=== PATIENT | female | born 1970 | race African-American/Black ===

== ENCOUNTER 2016-08-13 20:16 | Inpatient (IN) | payer MEDICAID ==
--- NOTE | ~2016-08-13 | DS ---
Unit #: [id number] #: [id number] Patient: ETHEL RUSSELL [id number] [address] [address] [id number] I MR#: [id number] NAME: ETHEL RUSSELL ROOM: 453 Age: 46 Sex: F Admission Date: 08/14/2016 : 1970 Discharge Date: 08/16/2016 Attending Physician: Ruslan Chau M.D. Primary Care Physician: [facility] DISCHARGE SUMMARY REASON FOR ADMISSION Crohn exacerbation. HISTORY OF PRESENT ILLNESS/HOSPITAL COURSE The patient is a very pleasant 46-year-old female with prior history of Crohn disease, was admitted secondary to Crohn exacerbation. Please see H and P for complete details. The patient did undergo a CT abdomen and pelvis in the emergency room which did reveal findings consistent with inflammatory thickening of a 7 cm segment of the terminal ileum extending into the anastomosis that was seen and had been done previously. There was also a central fibroid which was noted within the uterus, coincidental finding. In regard to Crohn exacerbation, she was given appropriate symptom management with Zofran, pain control. Consultation was also placed to Dr. Gonzalez of GI services. The patient was initiated on IV Solu-Medrol. She has shown improvement. She wishes to have regular diet today. We are awaiting her ability to tolerate a regular diet. Her pain has improved to the point where she appears clinically stable for discharge. She will follow up with Dr. Zavala, her normal gin operator at time of discharge as an outpatient. Her hemoglobin on day of admission was noted to be 8.8. She does have a decreased MCV of 63.2. She did receive IV ferrous gluconate while here. Today, hemoglobin currently stands at 7.3. She will be given 2 units of packed red blood cells prior to discharge. She was also encouraged at the time of discharge to follow with her PCP for outpatient evaluation and possible gynecologic evaluation of aforementioned uterine fibroid. FINAL DISCHARGE DIAGNOSES 1. Crohn exacerbation. 2. Anemia, iron deficiency. 3. Probable uterine fibroid. DISCHARGE MEDICATIONS 1. Pepcid 20 mg p.o. b.i.d. Unit #: [id number] #: [id number] Patient: ETHEL RUSSELL 2. Zofran 4 mg p.o. q.6 p.r.n. #30 prescription given. 3. Ferrous gluconate 325 mg one tablet p.o. b.i.d. 4. Prednisone taper per Dr. Gonzalez. Dictated by... Justine Day/julissa TD: 08/18/2016 14:40 JOB #: [id number] DISCHARGE SUMMARY Page 1 of 1 X Ruslan Chau MD X DISCHARGE SUMMARY
--- NOTE | ~2016-08-13 | CT4 ---
[facility] RADIOLOGY TEXT RESULTS PATIENT: ETHEL RUSSELL LOCATION: C4B 453- : [birth year] UNIT #: [id number] AGE: [address]: Ruslan Chau MD SEX: F ORDER DR: [id number] [facility] [address] [facility]. [place], [place] [address] [id number] I MR#: [id number] Acc #: [id number] NAME: ETHEL RUSSELL : 1970 SEX: F STUDY DATE/TIME: 08/13/2016 22:22 UNIT: C4B ROOM: [facility] STUDY DESCRIPTION: CT Abd and Pelv Wo Cont Attending Physician: Ruslan Chau M.D. Ordering Physician: Alicia Alvarado M.D. Primary Care Physician: [facility] MEDICAL IMAGING REPORT This report is preliminary unless electronic signature is present EXAM CT abdomen and pelvis without contrast INDICATIONS Nausea, generalized abdominal pain for the past 3 days. History of Crohn disease. PROCEDURE Unenhanced CT of the abdomen and pelvis COMPARISON None This CT exam was performed with one or more of the following radiation dose reduction techniques: automatic exposure control, adjustment of mA and/or kV according to patient size, and iterative reconstruction. FINDINGS Abdomen without contrast: Included lung bases clear. Liver spleen kidneys adrenal glands, pancreas gallbladder have an unremarkable unenhanced appearance. Mild gastroesophageal reflux. Postsurgical change at the ileocecal junction. There is inflammatory thickening of the terminal ileum, overall length of approximately 7 cm. This extends to the anastomoses. Small bowel loops proximal to this segment are dilated, with air-fluid levels and measure up to 3.4 cm. No evidence for an abscess on this unenhanced study. Pelvis without contrast: Not well seen, the endometrium appears significantly thickened. There is a trace amount of fluid in the pelvis of presumed reactive. No aggressive appearing bone lesions. [facility] RADIOLOGY TEXT RESULTS PATIENT: ETHEL RUSSELL LOCATION: C4B - : 66 UNIT #: [id number] AGE: [address]: Ruslan Chau MD SEX: F ORDER DR: TODD Previous surgery at the ileocecal junction. There is inflammatory thickening of a 7 cm segment of terminal ileum extending to the anastomoses, with evidence for functional obstruction in the bowel loops proximal to this segment. There is no evidence for an abscess. Fullness in the central uterus not well characterized on this study, possibly representing thickened endometrium but could also represent a large central fibroid. This would be best evaluated with a nonemergent pelvic ultrasound. Dictated by... Lorenzo Crawford M.D. THIS IS AN ELECTRONICALLY VERIFIED REPORT Lorenzo Crawford M.D. at 08/19/2016 3:07 PM TOBI/fernanda TD: 08/14/2016 12:12 JOB #: [id number] MEDICAL IMAGING REPORT Page 1 of 1 COPY
--- NOTE | ~2016-08-13 | HP ---
Unit #: [id number] #: [id number] Patient: ETHEL RUSSELL [id number] [address] [address] [id number] I MR#: [id number] NAME: ETHEL RUSSELL ROOM: 453 Age: 46 Sex: F Admission Date: 08/14/2016 : 1970 Attending Physician: Ritu Schwartz M.D. Primary Care Physician: [facility] HISTORY AND PHYSICAL CHIEF COMPLAINT Crohn flare with terminal ileitis and functional obstruction. HISTORY This pleasant 46-year-old female with Crohn disease, status post distal small bowel resection in 2007, is admitted for a Crohn flare. Patient states that she was diagnosed with Crohn disease in 2001. Underwent a distal small bowel resection in 2007. No exacerbation of her usual Crohn disease since 2007. Reports a colonoscopy last year at [facility] perhaps showing a little bit of inflammation for which she was placed on oral medications. She was well until 3 days prior to admission when she began to experience increasing mid abdominal pain now associated with feeling sweaty and hot along with nausea, but no emesis. Last bowel movement was three days ago, although patient was passing flatus yesterday. She presented to our emergency department late last evening where a CT scan shows inflammatory thickening of the terminal ileum near the ileocecal junction postop region with a functional obstruction proximal to the inflamed segment. On examination, the patient has generalized tenderness, perhaps more around the periumbilical region, but no rebound or guarding. She was bolused with IV fluids, given Zofran, Protonix, and two doses of Dilaudid. Denies melena or hematochezia. Does intermittently have heavy menstrual periods. Her current hematocrit is 30.8 with a MCV of 63.2. PAST MEDICAL HISTORY 1. Crohn disease diagnosed in 2001, status post ileocecal resection 2007, with last colonoscopy performed a year ago at [facility]. 2. History of hypertension. ALLERGIES None. HOME MEDICATIONS Patient was previously taking Asacol. FAMILY HISTORY Colon cancer. SOCIAL HISTORY The patient lives with her common law . She smokes occasional tobacco and seldom drinks alcohol. Unit #: [id number] #: [id number] Patient: ETHEL RUSSELL REVIEW OF SYSTEMS Notable for abdominal pain, constipation, nausea, Crohn disease, hypertension, tobacco use, and abovementioned surgery. Also, heavy menstrual periods intermittently. All other systems were reviewed and are negative. PHYSICAL EXAMINATION GENERAL APPEARANCE: Pleasant, thin, 46-year-old female. She looks to be mildly uncomfortable despite Dilaudid. VITAL SIGNS: Temperature 98.8; pulse 101; respirations 18; and initial blood pressure 158/104, but current blood pressure is 106/88. O2 saturation is 96% on room air. HEENT: Eyes: PERRLA. Extraocular muscles are intact. Pharynx is benign. NECK: Supple without adenopathy or thyromegaly. CHEST: Clear. CARDIAC: Normal S1 and S2 with a soft systolic murmur best heard at the upper sternal border. ABDOMEN: Bowels sounds are present, mildly hyperactive. Patient has generalized abdominal tenderness without rebound or guarding. The abdominal tenderness localizes more on the periumbilical region. Well healed midline scar noted. EXTREMITIES: Without C, C, or E. Pedal pulses are present. NEUROLOGIC: Patient is awake, alert, and oriented. Cranial nerves are intact. She has equal strength throughout. DIAGNOSTIC STUDIES LABORATORY: Hematocrit is 30.8 without previous values for comparison. Normal white count and platelet count. MCV is 63.2. Three bands noted. SMA-12: Creatinine 1.4, sodium 133, potassium 3.3, and chloride 97. Normal amylase, lipase, and LFTs. Urinalysis: 5-10 white cells and 1+ bacteria, but moderate squamous epithelial cells making this a poor specimen. Culture is being performed. IMAGING: CT scan shows postop changes from the ileocecal junction with inflammatory thickening of the terminal ileum through near the anastomotic site. Functional obstruction proximal to the inflamed segment. Fullness in the uterus, which could be a fibroid versus thickened endometrium. ASSESSMENT 1. Crohn disease, status post partial distal small bowel resection now with flare and terminal ileitis with functional obstruction proximal to the inflamed segment. However, patient's examination is not consistent with a small bowel obstruction, she has had no vomiting. 2. Microcytic anemia, which could be on the basis of menorrhagia. Patient was heme-negative in the ER. 3. Fullness noted of the uterus on CT scan. PLANS 1. IV fluids and supportive treatment. 2. IV steroids. 3. GI consultation. 4. DVT and gastritis prophylaxis. 5. Check iron stores. 6. Could consider pelvic ultrasound at some point. Unit #: [id number] #: [id number] Patient: ETHEL RUSSELL Dictated by Ritu Schwartz M.D. AML/pc TD: 08/14/2016 05:09 JOB #: [id number] CC: Sue Devine M.D. HISTORY AND PHYSICAL Page 1 of 1 X Ritu Schwartz MD X HISTORY AND PHYSICAL
--- NOTE | ~2016-08-13 | CO ---
Unit #: [id number] #: [id number] Patient: ETHEL RUSSELL [id number] [address] [place], [place] [address] [id number] I MR#: [id number] NAME: ETHEL RUSSELL ROOM: 453 Age: 46 Sex: F Admission Date: 08/14/2016 : 1970 Attending Physician: Ruslan Chau M.D. Primary Care Physician: [facility] Consultation Date: 08/14/2016 CONSULTATION REPORT PRIMARY CARE PHYSICIAN [facility]. REASON FOR CONSULTATION Abdominal pain and history of Crohn disease. HISTORY OF PRESENT ILLNESS Ms. Russell is a 46-year-old female, who was diagnosed with Crohn disease for many years. She has undergone a distal ileum and ileocolic resection in 2007 and has since then been well. Lately, she has had some recurrent symptoms and underwent a colonoscopy about 6 months ago. This was done at [facility] by Dr. Zavala. The patient was offered to be included in a trial for Crohn, but somehow either did not want to be included or did not qualify. Apparently, she is on some medications, she does not know their names and says she ran out of them, but never saw Dr. Zavala again. She ended up coming with periumbilical abdominal pain and nausea, but no vomiting. In the emergency room, she was given IV fluids, Protonix, Zofran, and Dilaudid. There is no history of overt GI bleed. The patient does have intermittent menorrhagia. PAST MEDICAL HISTORY Significant for hypertension, history of Crohn disease, status post ileocecal resection. HOME MEDICATIONS None at the moment. Previously, the patient was taking Asacol and some additional medicines. ALLERGIES She has no known drug allergies. FAMILY HISTORY Significant for colon cancer. SOCIAL HISTORY Lives with her common-law . Smokes about less than a pack of cigarette a day and rarely drinks alcohol. REVIEW OF SYSTEMS Detailed review of organ systems does not reveal any recent weight loss. No history of fever, chills, or rigors. No history of headache, seizures, chest pain, or syncope. No history of cough, expectoration, or hemoptysis. No history of dysuria, hematuria, or pyuria. No history of Unit #: [id number] #: [id number] Patient: ETHEL RUSSELL focal seizures or extremity weakness. Rest of review of organ systems is unremarkable. PHYSICAL EXAMINATION GENERAL: She is awake, alert, and oriented, and appears comfortable. VITAL SIGNS: Stable with a temperature of 98.9, pulse 96 per minute, respiratory rate 16, blood pressure is 106/88. She weighs 129 or 130 pounds. HEENT: She has mild pallor. There being no icterus, lymphadenopathy, peripheral edema. CARDIOVASCULAR: Normal heart sounds. No murmurs. LUNGS: Auscultation over the lungs reveal normal breath sounds. Good air entry. ABDOMEN: Soft. It is minimally tender in the epigastric area. No exquisite tenderness is found. No rigidity, rebound or guarding is felt. Liver and spleen are not palpable. Bowel sounds normal. Hernia sites are also normal. DIAGNOSTIC STUDIES LABORATORY RESULTS: Shows a hypochromic microcytic anemia with a hemoglobin of 8.2, MCV of 64.7, white count is 7000, platelet count is 330. Serum chemistry shows normal BUN and creatinine and a potassium of 3.3 and albumin of 3.8. LFTs are normal. Urinalysis shows 1+ protein and 1+ bacteria. Urine culture is pending. IMAGING STUDIES: The patient also had a CT scan of the abdomen and pelvis and has not been reported yet. CLINICAL IMPRESSION The patient with recurrent anastomotic Crohn. We will treat with symptoms suggestive of early partial small bowel obstruction from recurrent disease. We will treat her with IV steroids including Solu-Medrol 80 mg IV q.8 hours and switch to oral steroids once the patient is able to tolerate. Also start on clear liquid diet and advance the diet as tolerated. After she is discharged from the hospital, she needs to call Dr. Zavala's office and be seen within the next week or two in order to continue her medications and treatment there. The above plan was discussed with the patient and she was reassured. Thank you for asking me to see this pleasant woman. I appreciate the consult. Dictated by.Justine Da Silva/serg TD: 08/15/2016 02:35 JOB #: [id number] CC: Grey Zavala M.D. Unit #: [id number] #: [id number] Patient: ETHEL RUSSELL CONSULTATION REPORT Page 1 of 1 X Ash Gonzalez MD CONSULTATION REPORT
[2016-08-13 21:19] LABS: URINE SOURCE CLEAN CATCH
[2016-08-13 21:20] LABS: BASOPHIL% 0.2 % (0-2.5); EOSINOPHIL% 0.4 % (0.0-7.0); HEMATOCRIT 30.8 % (35.0-45.0); HEMOGLOBIN 8.8 gm/dL (12.0-16.0); LYMPHOCYTE# 1.3 X10e3 (1.0-3.5); LYMPHOCYTE% 18.3 % (17.0-45.0); MEAN CELL VOLUME 63.2 FL (83-96); MEAN CORPUSCULAR HEMOGLOBIN 18.1 PG (28-34); MEAN CORPUSCULAR HGB CONC 28.7 g/dL (30-36); MEAN PLATELET VOLUME 8.6 FL (6.5-11.5); MONOCYTE# 0.4 X10e3 (0-1.0); NEUTROPHIL# 5.4 X10e3 (1.5-7.1); NEUTROPHIL% 76.1 % (40-75); PLATELET COUNT 330 X10e3 (140-420); RED BLOOD COUNT 4.88 X10e (3.90-5.30); RED CELL DISTRIBUTION WIDTH 22.1 % (11.0-15.5); WHITE BLOOD COUNT 7.1 X10e3 (4.0-10.5)
[2016-08-13 21:23] LABS: DIFF IND YES
[2016-08-13 21:27] LABS: URINE APPEARANCE CLOUDY; URINE BILIRUBIN NEG (NEG); URINE BLOOD NEG (NEG); URINE COLOR YELLOW; URINE GLUCOSE NEG (NEG); URINE KETONE 1+ (NEG); URINE LEUKOCYTE ESTERASE TRACE (NEG); URINE NITRATE NEG (NEG); URINE PH 5.5 (5-8); URINE PROTEIN 1+ (NEG)
[2016-08-13 21:29] LABS: CULTURE INDICATED? YES; URINE BACTERIA AUWI 1+ (NEGATIVE); URINE SQUAMOUS EPITHELIAL CELL MOD /[HPF]
[2016-08-13 21:38] LABS: ALBUMIN SERUM 3.8 g/dL (3.5-5.0); BILIRUBIN, DIRECT 0.1 mg/dL (0.0-0.2); BILIRUBIN,INDIRECT 0.8 mg/dL (0.0-0.9); BILIRUBIN,TOTAL 0.9 mg/dL (0.2-2.0); CALCIUM SERUM 9.3 mg/dL (8.4-10.2); CREATININE SERUM 1.4 mg/dL (0.6-1.4); GLOM FILT RATE Estimated 51.4 mL/min (>60); POTASSIUM 3.3 mmol/L (3.5-5.1); PROTEIN TOTAL SERUM 8.2 g/dL (6.0-8.3)
[2016-08-13 21:56] LABS: HYPOCHROMIA MOD; PLATELET ESTIMATE NORMAL (NORMAL); TARGET CELLS SL
[2016-08-14 07:16] LABS: BASOPHIL% 0.2 % (0-2.5); HEMOGLOBIN 8.2 gm/dL (12.0-16.0); LYMPHOCYTE# 0.1 X10e3 (1.0-3.5); LYMPHOCYTE% 1.7 % (17.0-45.0); MEAN CELL VOLUME 64.7 FL (83-96); MEAN CORPUSCULAR HEMOGLOBIN 18.2 PG (28-34); MEAN CORPUSCULAR HGB CONC 28.1 g/dL (30-36); MEAN PLATELET VOLUME 8.3 FL (6.5-11.5); MONOCYTE# 0.1 X10e3 (0-1.0); MONOCYTE% 1.4 % (3.0-12.0); NEUTROPHIL# 8.2 X10e3 (1.5-7.1); NEUTROPHIL% 96.7 % (40-75); PLATELET COUNT 326 X10e3 (140-420); RED BLOOD COUNT 4.49 X10e (3.90-5.30); RED CELL DISTRIBUTION WIDTH 22.3 % (11.0-15.5); WHITE BLOOD COUNT 8.5 X10e3 (4.0-10.5)
[2016-08-14 07:18] LABS: DIFF IND NO
[2016-08-14 07:34] LABS: BUN/CREATININE RATIO 12.22; CALCIUM SERUM 8.5 mg/dL (8.4-10.2); CREATININE SERUM 0.9 mg/dL (0.6-1.4); GLOM FILT RATE Estimated 87.7 mL/min (>60); POTASSIUM 4.3 mmol/L (3.5-5.1)
[2016-08-15 04:09] LABS: HEMOGLOBIN 7.3 gm/dL (12.0-16.0); MEAN CELL VOLUME 65.4 FL (83-96); MEAN CORPUSCULAR HEMOGLOBIN 18.5 PG (28-34); MEAN CORPUSCULAR HGB CONC 28.3 g/dL (30-36); MEAN PLATELET VOLUME 8.8 FL (6.5-11.5); RED BLOOD COUNT 3.97 X10e (3.90-5.30); RED CELL DISTRIBUTION WIDTH 22.6 % (11.0-15.5); WHITE BLOOD COUNT 9.7 X10e3 (4.0-10.5)
[2016-08-15 04:28] LABS: ALBUMIN SERUM 2.9 g/dL (3.5-5.0); BILIRUBIN,TOTAL 0.1 mg/dL (0.2-2.0); CALCIUM SERUM 7.7 mg/dL (8.4-10.2); CREATININE SERUM 0.7 mg/dL (0.6-1.4); GLOM FILT RATE Estimated 118.7 mL/min (>60); POTASSIUM 4.3 mmol/L (3.5-5.1); PROTEIN TOTAL SERUM 6.7 g/dL (6.0-8.3)
[2016-08-15] MEDS ORDERED: PEPCID AC20 M2 PO (19:45)
[2016-08-15] MEDS ORDERED: ZOFRAN ODT4 MG PO (19:45)
[2016-08-15] MEDS ORDERED: FERROUS GLUCON324 MG PO (19:46)
[2016-08-15] MEDS ORDERED: PREDNISONE PO ×3 (19:48→19:51)
[2016-08-16] MEDS ORDERED: ZESTORETIC 10-1 EAC1 PO (10:35)
== END 2016-08-16 11:02 | disposition home or self-care (01) | DRG 386 ==
LOC: CED 20:16 → CEDOF 08-14 01:00 → CED 08-14 01:07 → CEDOF 08-14 01:07 → C4B 08-14 02:40 → CEDOF 08-14 02:40 → C4B 08-14 06:31
PROVIDERS: Internal Medicine Gastroenterology; Student in an Organized Health Care Education/Training Program
DX: K50.912 Crohn's disease, unspecified, with intestinal obstruction (principal); D50.9 Iron deficiency anemia, unspecified; I10 Essential (primary) hypertension; N85.8 Other specified noninflammatory disorders of uterus; F17.210 Nicotine dependence, cigarettes, uncomplicated; Z80.0 Family history of malignant neoplasm of digestive organs
CPT/HCPCS: 36415; 74176; 80048; 80053; 80076; 81003; 82150; 82728; 83540; 83550; 83690; 84703; 85025; 85027; 86140; 86850; 86900; 86901; 86923; 87086; 96361; 96374; 96375; 96376; 99285; C9113; J1170; J1940; J2405; J2916; J2920; J2930; P9016